=== PATIENT | female | born 1990 ===

== ENCOUNTER 2021-08-05 01:35 | Emergency (ER) | payer OTHER ==
[~2021-08-05] VITALS: Ht 157.5 cm; Wt 113.2 kg
[2021-08-05 01:37] VITALS: BP 138/80
== END 2021-08-05 02:36 | disposition left against medical advice (07) ==
LOC: ED 01:45
DX: R07.89 Other chest pain (principal); Z53.21 Procedure and treatment not carried out due to patient leaving prior to being seen by health care provider
CPT/HCPCS: 93005